=== PATIENT | female | born 1995 | race Caucasian/White ===

== ENCOUNTER → 2020-09-13 | Outpatient (CLI) | payer MEDICAID, SELFPAY ==
[2020-09-17 03:06] LABS: Chlamydia By Nucleic Acid AMP Negative (Negative)
[2020-09-17 08:05] LABS: Gonococcus By Nucleic Acid AMP Negative (Negative)
[2020-09-19 01:45] LABS: HPV Reflexed? NOT INDICATED
== END | disposition home or self-care (01) ==
LOC: LABSPEC 15:06
PROVIDERS: Visit Provider Obstetrics & Gynecology
DX: Z12.4 Encounter for screening for malignant neoplasm of cervix (principal); Z11.3 Encounter for screening for infections with a predominantly sexual mode of transmission
CPT/HCPCS: 87491; 87591; 88175; G0145

== ENCOUNTER → 2022-09-18 | Outpatient (CLI) | payer MEDICAID, SELFPAY ==
[2022-09-18 12:32] LABS: Glucose Challenge Gest 1H 50g 108 mg/dL (70-140)
== END | disposition home or self-care (01) ==
LOC: WOBLAB 11:06
PROVIDERS: Visit Provider Obstetrics & Gynecology
DX: Z34.81 Encounter for supervision of other normal pregnancy, first trimester (principal)
CPT/HCPCS: 36415; 82950